=== PATIENT | female | born 1950 | race Two or more races ===

== ENCOUNTER 2025-02-24 00:07 | Emergency (ER) | payer OTHER, MEDICAID ==
[~2025-02-24] VITALS: Ht 170.2 cm; Wt 94.0 kg
[2025-02-24 00:25] VITALS: BP 164/89; PULSE 95; RESP 20; TEMP 98.5; O2SAT 99
--- NOTE | 2025-02-25 13:47 | ECG ---
[facility] Test Date: 2025-02-24 Test Time: 00:15:28 Pat Name: SHIREEN PERKINS Department: ED Room: Gender: F [employer]: MARY : 1950 Requested By: EMERGENCY EMERGENCY Order Number: [id number] Reading MD: Niranjan Cox Measurements Intervals Welling Rate: 95 P: 75 PA: 180 QRS: 53 QRSD: 88 T: 45 QT: 349 QTc: 439 Interpretive Statements Sinus rhythm Electronically Signed On 02-26-2025 20:54:31 PDT by Niranjan Cox Please click the below link to view image of tracing.
== END 2025-02-24 01:28 | disposition left against medical advice (07) ==
LOC: ER 00:07
DX: F41.9 Anxiety disorder, unspecified (principal); R42 Dizziness and giddiness; R00.2 Palpitations; Z53.21 Procedure and treatment not carried out due to patient leaving prior to being seen by health care provider
CPT/HCPCS: 82947; 82962; 93005